=== PATIENT | female | born 1935 | race Caucasian/White ===

== ENCOUNTER → 2023-03-20 10:14 | Outpatient (REF) | payer MEDICARE, SELFPAY ==
[2023-03-20 11:12] LABS: % Basophils 0.6 % (0-2); % Eosinophils 8.9 % (0-6); % Immature Granulocytes 0.2 % (0-0.5); % Lymphocytes 23.6 % (20.5-51.1); % Monocytes 9.1 % (1.7-9.3); % Neutrophils 57.6 % (42.2-75.2); Absolute Eosinophils 0.6 10^3/uL (0-0.7); Absolute Lymphocytes 1.5 10^3/uL (1.2-3.4); Absolute Monocytes 0.6 10^3/uL (0.1-0.6); Absolute Neutrophils 3.7 10^3/uL (1.4-6.5); Hematocrit 36.2 % (37.0-47.0); Hemoglobin 12.3 g/dL (12.0-16.0); Mean Corpuscular Hgb 29.3 pg (27.0-31.0); Mean Corpuscular Volume 86.2 fL (81.0-99.0); Mean Platelet Volume 11.9 fL (7.4-10.4); Nucleated Red Blood Cells % 0 %; Platelet Count 246 10^3/uL (130-400); White Blood Cell Count 6.4 10^3/uL (4.8-10.8)
[2023-03-20 11:36] LABS: ALT (SGPT) 13 U/L (0-35); AST (SGOT) 25 U/L (14-36); Albumin 3.4 g/dl (3.5-5.0); Alkaline Phosphatase 79 U/L (38-126); Blood Urea Nitrogen 19 mg/dl (7-17); Calcium 9.2 mg/dl (8.4-10.2); Carbon Dioxide 26 mmol/L (22-30); Chloride 102 mmol/L (98-107); Glucose 101 mg/dl (70-99); Sodium 136 mmol/L (135-145); Total Bilirubin 0.6 mg/dl (0.2-1.3); Total Protein 6.1 g/dl (6.3-8.2); eGFR > 60.00
[2023-03-20 11:42] LABS: Potassium 3.9 mmol/L (3.5-5.1)
== END ==
LOC: OLABSOL 10:14
PROVIDERS: ATTENDING PHYSICIAN Hospitalist
DX: R94.4 Abnormal results of kidney function studies (principal); D64.9 Anemia, unspecified
CPT/HCPCS: 36415; 80053; 85025

== ENCOUNTER 2023-04-24 13:25 | Emergency (ER) | payer MEDICARE, SELFPAY ==
[2023-04-24 13:29] VITALS: BP 150/77
[2023-04-24 13:30] VITALS: BP 150/77
[2023-04-24 13:32] VITALS: BMI 21.0
[2023-04-24 14:26] LABS: % Basophils 0.5 % (0-2); % Eosinophils 1.5 % (0-6); % Immature Granulocytes 0.8 % (0-0.5); % Lymphocytes 25.6 % (20.5-51.1); % Monocytes 8.2 % (1.7-9.3); % Neutrophils 63.4 % (42.2-75.2); Absolute Basophils 0.1 10^3/uL (0-0.2); Absolute Eosinophils 0.2 10^3/uL (0-0.7); Absolute Immature Granulocytes 0.1 10^3/uL (0-0.05); Absolute Neutrophils 7.5 10^3/uL (1.4-6.5); Hematocrit 39.3 % (37.0-47.0); Hemoglobin 13.6 g/dL (12.0-16.0); Mean Corp Hgb Conc. 34.6 g/dL (33.0-37.0); Mean Corpuscular Hgb 28.9 pg (27.0-31.0); Mean Corpuscular Volume 83.6 fL (81.0-99.0); Mean Platelet Volume 11.7 fL (7.4-10.4); Nucleated Red Blood Cells % 0 %; Platelet Count 285 10^3/uL (130-400); Red Cell Dist. Width 13.3 % (11.5-14.5); White Blood Cell Count 11.7 10^3/uL (4.8-10.8)
[2023-04-24 14:42] LABS: ALT (SGPT) 15 U/L (0-35); AST (SGOT) 21 U/L (14-36); Alkaline Phosphatase 68 U/L (38-126); Blood Urea Nitrogen 18 mg/dl (7-17); Calcium 7.7 mg/dl (8.4-10.2); Carbon Dioxide 21 mmol/L (22-30); Chloride 109 mmol/L (98-107); Estimated Creatinine Clearance 58 ml/min; Glucose 128 mg/dl (70-99); Sodium 138 mmol/L (135-145); Total Bilirubin 0.4 mg/dl (0.2-1.3); Total Protein 5.8 g/dl (6.3-8.2); eGFR > 60.00
[2023-04-24 14:50] LABS: Troponin I < 0.012 ng/ml
[2023-04-24] MEDS: KLOR-CON 20 MEQ PO (15:40)
[2023-04-24] MEDS: NSS 500 IV (15:42)
[2023-04-24] MEDS: TYLENOL 650 MG PO (16:01)
[2023-04-24 16:50] VITALS: BP 129/80
[2023-04-24 17:03] LABS: Urine Albumin Trace (Neg - Trace); Urine Bilirubin Negative (Negative); Urine Character Clear (Clear); Urine Color Yellow; Urine Glucose Negative (Negative); Urine Ketone Negative (Negative); Urine Leukocyte 2+ (Negative); Urine Nitrite Positive (Negative); Urine Occult Blood 1+ (Negative); Urine Specific Gravity 1.015 (<1.030); Urine Urobilinogen Negative (Neg - 1+)
[2023-04-24 17:30] LABS: Urine Squamous Cell 0-2 /LPF (Few)
[2023-04-24 17:31] LABS: Urine Bacteria Many (Negative); Urine White Cell 80-90 /HPF (0-5)
--- NOTE | 2023-04-24 17:39 | ED.GENMED ---
Addendum entered and electronically signed by Magno Esquivel PA-C 04/26/23 07:20:
UCx prelim positive for 100k gram neg bacilli, pt on cephalexin, final pending
Original Note:
History of Present Illness
General
Chief Complaint: Fainting/Passed Out
Source: patient
Exam Limitations: none
Time Seen by Provider: 04/24/23 15:13
Nursing documentation reviewed up to this point in time: agreed with
Travel History
Have you had any contact with someone who has COVID-19?: Unable to Answer
Do you have any symptoms of coronavirus? Fever > 100 degrees, chills, cough, shortness of breath, sore throat, loss of taste or smell, muscle aches, or headache?: Unable to Answer
History of Present Illness
History of Present Illness:
87-year-old female with past medical history of dementia, hypertension, presenting to the emergency department today with concerns of an episode where she was found slouched in her chair while eating lunch at her nursing facility and was
unresponsive for a brief moment since then she has been acting normally she denies any specific symptoms this was witnessed. Patient is here with her daughter who is helping with history. She does not have any great recollection of the event but
that is normal for her. She also has been dealing with a superficial rash to her extremities over the past few weeks which has been followed up closely as an outpatient.
Review of Systems
Review of Systems
Allergies reviewed?: Yes
All Other Systems: ROS reviewed and negative except as documented in HPI and ROS
Phy Exam
Physical Exam
Physical Exam:
GENERAL: Alert , in no apparent distress
EYE: pupils equal and reactive
NECK: Supple, no significant adenopathy.
ENT: o/p clr, mmm.
CARDIAC: Regular rate and rhythm .
LUNGS: Clear breath sounds bilaterally, no acute respiratory distress, no wheezes/rales/rhonchi
ABDOMEN: Soft, without focal tenderness, no r/g, no cvat
NEUROLOGICAL: Alert, no focal neuro deficits 5-5 upper and lower extremity strength normal sensation when palpating bilaterally normal finger-nose and [id number] no pronator drift.
SKIN: Scattered small excoriated spots throughout the extremities chest and abdomen region. No significant redness warmth or tenderness palpation throughout these areas. Warm and dry, skin intact.
MUSCULOSKELETAL: No edema, well perfused.
PSYCH: Normal and appropriate interaction.
Course
Orders/Labs/Results
Orders:
Orders
04/24/23 13:46
Electrocardiogram (*1) Urgent
Reason for Study: Syncope
EKG- Treatment ONCE
04/24/23 14:19
CMP [Comprehensive Metabolic Panel] Urgent
Complete Blood Count/With Diff Urgent
Troponin I Urgent
04/24/23 15:31
0.9% Sodium Chloride 500 ml [Nss] 500 ml IV BOLUS
Potassium Chloride Powder [Klor-Con] 20 meq PO NOW STA
04/24/23 15:56
Acetaminophen [Tylenol] 650 mg PO NOW STA
04/24/23 16:48
Urinalysis Reflex To Culture Urgent
Date Specimen was Collected: 04/24/23
Time Specimen was Collected: 16:46
Urine Microscopic Reflex Cult Urgent
Urine Culture Urgent
EMERITA Source: U
Specimen Description:
Date Specimen was Collected: 04/24/23
Time Specimen was Collected: 16:46
04/24/23 17:40
Cephalexin Monohydrate [Keflex] 500 mg PO NOW STA
Abnormal Lab Results
04/24/23 04/24/23
14:19 16:48
WBC 11.7 H 10^3/uL
(4.8-10.8)
MPV 11.7 H fL
(7.4-10.4)
Abs Immat Gran (auto) 0.1 H 10^3/uL
(0-0.05)
Absolute Neuts (auto) 7.5 H 10^3/uL
(1.4-6.5)
Absolute Monos (auto) 1.0 H 10^3/uL
(0.1-0.6)
Immature Gran % 0.8 H %
(0-0.5)
Potassium 3.0 L mmol/L
(3.5-5.1)
Chloride 109 H mmol/L
(98-107)
Carbon Dioxide 21 L mmol/L
(22-30)
BUN 18 H mg/dl
(7-17)
Glucose 128 H mg/dl
(70-99)
Calcium 7.7 L mg/dl
(8.4-10.2)
Total Protein 5.8 L g/dl
(6.3-8.2)
Albumin 3.0 L g/dl
(3.5-5.0)
Ur Occult Blood Reflex 1+ A
(Negative)
Urine Nitrite (Reflex) Positive A
(Negative)
Leukocyte Esterase Rfl 2+ A
(Negative)
Urine RBC 3-6 A /HPF
(0-2)
Urine WBC (Reflex) 80-90 A /HPF
(0-5)
Urine Bacteria (Reflex) Many A
(Negative)
04/24/23 14:19
04/24/23 14:19
Vital Signs
Initial and Last Documented VS:
Initial Vital Signs
BP
150/77
04/24/23 13:29
Last Documented Vital Signs
Temp Pulse Resp BP Pulse Ox
97.7 F 72 19 129/80 95
04/24/23 13:30 04/24/23 16:50 04/24/23 16:50 04/24/23 16:50 04/24/23 16:50
MDM/Problems Addressed
MDM/Problems Addressed:
87-year-old female presenting to the emergency department today with concerns of an episode where she passed out for a brief moment at her nursing facility. This was witnessed and no trauma sustained. Upon arrival vital signs normal patient no
acute distress labs showing slightly low potassium level and elevated BUN level to creatinine ratio indicating potential mild dehydration which she was given a small mount of fluid as well as potassium supplementation. Additionally urinalysis
appears to be consistent with UTI. She has had frequency and urgency of urination. Patient started on Keflex otherwise urine culture was sent. Otherwise patient very well-appearing here ambulating with steady gait no EKG changes normal troponin
level stable for discharge return precautions given.
*Critical Care Note
Total Time (30-74mins, 75-104mins- exclusive of procedures): Not Applicable
ED Attending Note
-
Portions of this chart may have been created with voice recognition software.� Occasional wrong word or��sound alike� substitutions may have occurred due to the inherent limitations of voice recognition software.
Discharge Plan
Departure
Patient Disposition: Home (Routine Discharge)
Date of Disposition: 04/24/23
Time of Disposition: 17:49
Patient with high blood pressure during this ER visit?: No
Condition: Good
Covid-19: Not Applicable
Discharge Problem:
Syncope, UTI (urinary tract infection), Hypokalemia
Instructions: Syncope (Fainting) (DC)
Prescriptions:
New
cephalexin 500 mg capsule
500 mg PO Q8H 5 Days Qty: 15 0RF
potassium chloride 20 mEq packet
20 meq PO DAILY Qty: 30 0RF
No Action
multivitamin [Daily-Otis] Tablet
1 tab PO DAILY
latanoprost 0.005 % Drops
1 drp BOTH EYES HS
prednisone 20 mg Tablet
20 mg PO BID
Patient Comments:
take from 04/21/23-04/26/23
fexofenadine [Patti] 180 mg Tablet
180 mg PO DAILY
aspirin 81 mg Tablet,Delayed Release (Dr/Ec)
81 mg PO DAILY
calcium carbonate [Calcium 600] 600 mg calcium (1,500 mg) Tablet
600 mg PO DAILY
amlodipine [Norvasc] 10 mg Tablet
10 mg PO DAILY
triamcinolone acetonide 0.1 % Ointment
1 applic TOPICAL BID
ibuprofen [Advil] 200 mg Tablet
400 mg PO TID
docusate sodium [Colace] 100 mg Capsule
100 mg PO DAILY
cholecalciferol (vitamin D3) [Vitamin D3] 25 mcg (1,000 unit) Tablet
25 mcg PO DAILY
melatonin 10 mg Tablet
10 mg PO HS
Biofreeze (menthol) 4 % Gel
1 applic TOPICAL QID
magnesium oxide 400 mg magnesium Tablet
400 mg PO DAILY
Referrals:
Corona Grijalva MD [Family Provider] -
Activity Restrictions/Additional Instructions:
You came to the emergency department today after a syncopal event. You are found to have a low potassium level. Please take the supplementation and 1 dose daily over the next week or 2 and get a repeated lab test to ensure this is improved.
Additionally you were found to be slightly dehydrated. Important stay hydrated and drink plenty of fluids. Additionally you are found to have a urinary tract infection. Please take the prescribed Keflex 3 times daily for the next 5 days and
follow-up closely in regard to this. Return to the emergency department for any worsening, new or concerning symptoms.
Interventions
Interventions:
ED- Cardiac Assessment Last Done: 04/24/23 13:53
[2023-04-24] MEDS: KEFLEX 500 MG PO (17:55)
[2023-04-24 17:57] VITALS: BP 142/77
== END 2023-04-24 18:42 | disposition home or self-care (01) ==
LOC: EMR 13:25
PROVIDERS: Emergency Medicine; Physician Assistant; EMERGENCY PHYSICIAN Emergency Medicine; FAMILY PHYSICIAN Family Medicine
DX: R55 Syncope and collapse (principal); N39.0 Urinary tract infection, site not specified; E87.6 Hypokalemia; I10 Essential (primary) hypertension; F03.90 Unspecified dementia, unspecified severity, without behavioral disturbance, psychotic disturbance, mood disturbance, and anxiety
CPT/HCPCS: 99284; 96360; 80053; 81003; 81015; 84484; 85025; 87077; 87086; 87186; 93005